=== PATIENT | male | born 1940 | race Caucasian/White ===

== ENCOUNTER → 2016-09-17 | Outpatient (CLI) | payer OTHER | END | disposition home or self-care (01) | LOC: WOUND 10:00 | PROVIDERS: ATTEND Physician Assistant | DX: I87.2 Venous insufficiency (chronic) (peripheral) (principal); L97.821 Non-pressure chronic ulcer of other part of left lower leg limited to breakdown of skin; L97.811 Non-pressure chronic ulcer of other part of right lower leg limited to breakdown of skin; I10 Essential (primary) hypertension; E78.5 Hyperlipidemia, unspecified; Z72.89 Other problems related to lifestyle; M10.9 Gout, unspecified; I48.91 Unspecified atrial fibrillation; Z87.891 Personal history of nicotine dependence; Z79.01 Long term (current) use of anticoagulants | CPT/HCPCS: 11042; G0463; 97597; WOU0463 ==

== ENCOUNTER → 2016-09-24 | Outpatient (CLI) | payer OTHER | END | disposition home or self-care (01) | LOC: WOUND 09:22 | PROVIDERS: ATTEND Physician Assistant | DX: I87.2 Venous insufficiency (chronic) (peripheral) (principal); L97.821 Non-pressure chronic ulcer of other part of left lower leg limited to breakdown of skin; I10 Essential (primary) hypertension; E78.5 Hyperlipidemia, unspecified; I48.91 Unspecified atrial fibrillation; Z72.89 Other problems related to lifestyle; Z87.891 Personal history of nicotine dependence; Z79.01 Long term (current) use of anticoagulants | CPT/HCPCS: 11042 ==

== ENCOUNTER → 2016-09-26 | Outpatient (CLI) | payer OTHER | END | disposition home or self-care (01) | LOC: CFH 09:20 | PROVIDERS: ATTEND Physician Assistant | DX: I87.8 Other specified disorders of veins (principal); T81.89XA Other complications of procedures, not elsewhere classified, initial encounter; Z85.46 Personal history of malignant neoplasm of prostate; E78.5 Hyperlipidemia, unspecified; Z87.891 Personal history of nicotine dependence; I10 Essential (primary) hypertension; Z95.3 Presence of xenogenic heart valve; I70.203 Unspecified atherosclerosis of native arteries of extremities, bilateral legs | CPT/HCPCS: 93922; 93925; 93970 ==

== ENCOUNTER → 2016-10-01 | Outpatient (CLI) | payer OTHER | END | disposition home or self-care (01) | LOC: WOUND 13:00 | PROVIDERS: ATTEND Surgery | DX: I87.2 Venous insufficiency (chronic) (peripheral) (principal); L97.822 Non-pressure chronic ulcer of other part of left lower leg with fat layer exposed; I10 Essential (primary) hypertension; E78.5 Hyperlipidemia, unspecified; I48.91 Unspecified atrial fibrillation; Z79.01 Long term (current) use of anticoagulants; Z85.46 Personal history of malignant neoplasm of prostate; Z87.891 Personal history of nicotine dependence; Z72.89 Other problems related to lifestyle | CPT/HCPCS: 97597 ==

== ENCOUNTER → 2016-10-08 | Outpatient (CLI) | payer OTHER | END | disposition home or self-care (01) | LOC: WOUND 09:00 | PROVIDERS: ATTEND Internal Medicine Cardiovascular Disease | DX: I87.2 Venous insufficiency (chronic) (peripheral) (principal); L97.822 Non-pressure chronic ulcer of other part of left lower leg with fat layer exposed; I10 Essential (primary) hypertension; E78.5 Hyperlipidemia, unspecified; I48.91 Unspecified atrial fibrillation; M10.9 Gout, unspecified; Z85.46 Personal history of malignant neoplasm of prostate; Z79.01 Long term (current) use of anticoagulants; Z87.891 Personal history of nicotine dependence; Z72.89 Other problems related to lifestyle | CPT/HCPCS: G0463; WOU0463 ==

== ENCOUNTER → 2016-10-15 | Outpatient (CLI) | payer OTHER | END | disposition home or self-care (01) | LOC: WOUND 08:47 | PROVIDERS: ATTEND Physician Assistant | DX: I87.2 Venous insufficiency (chronic) (peripheral) (principal); L97.822 Non-pressure chronic ulcer of other part of left lower leg with fat layer exposed; I48.91 Unspecified atrial fibrillation; I10 Essential (primary) hypertension; I70.203 Unspecified atherosclerosis of native arteries of extremities, bilateral legs; E78.5 Hyperlipidemia, unspecified; Z79.01 Long term (current) use of anticoagulants; Z87.891 Personal history of nicotine dependence; Z72.89 Other problems related to lifestyle; Z85.46 Personal history of malignant neoplasm of prostate | CPT/HCPCS: 97597 ==

== ENCOUNTER → 2016-10-29 | Outpatient (CLI) | payer OTHER | END | disposition home or self-care (01) | LOC: WOUND 09:00 | PROVIDERS: ATTEND Physician Assistant | DX: I87.2 Venous insufficiency (chronic) (peripheral) (principal); L97.822 Non-pressure chronic ulcer of other part of left lower leg with fat layer exposed; I10 Essential (primary) hypertension; E78.5 Hyperlipidemia, unspecified; I48.91 Unspecified atrial fibrillation; M10.9 Gout, unspecified; Z87.891 Personal history of nicotine dependence; Z79.01 Long term (current) use of anticoagulants; Z72.89 Other problems related to lifestyle; Z85.46 Personal history of malignant neoplasm of prostate | CPT/HCPCS: G0463; WOU0463 ==

== ENCOUNTER 2017-03-29 09:34 | Inpatient (IN) | payer OTHER ==
[~2017-03-29] VITALS: Ht 180.3 cm; Wt 128.4 kg
[2017-03-29] VITALS (10 sets, daily range): BP systolic 145–173; BP diastolic 66–104
[2017-03-29] MEDS ORDERED: SILVER NITRATE STICK TP ONE (10:10)
[2017-03-29] MEDS ORDERED: LABETALOL 5MG/ML, 20ML ONE (12:14)
[2017-03-29] MEDS ORDERED: LABETALOL 5MG/ML, 20ML IVPush ONE (12:30)
[2017-03-29 12:34] LABS: HEMATOCRIT 43.6 % (39.2-51.8); HEMOGLOBIN 15.1 g/dL (13.7-18.0); WHITE BLOOD COUNT 9.5 x10^3/uL (3.4-10)
[2017-03-29 12:50] LABS: BLOOD UREA NITROGEN 19 mg/dL (7-18)
[2017-03-29] MEDS: hydrALAzine 20 MG/ML, 1ML IVPush PRN ×2 (12:55→17:48)
[2017-03-29] MEDS ORDERED: hydrALAzine 20 MG/ML, 1ML ONE (13:33)
[2017-03-29] MEDS ORDERED: ENALAPRILAT 1.25 MG/ML, 2ML IVPush PRN (14:30)
[2017-03-29] MEDS ORDERED: LISINOPRIL 20 MG TABLET PO ONE (14:30)
[2017-03-29] MEDS ORDERED: ACETAMINOPHEN 325 MG TABLET PO PRN (14:30)
[2017-03-29] MEDS ORDERED: DOCUSATE 100 MG CAPSULE PO PRN (14:30)
[2017-03-29] MEDS ORDERED: VITA100C8 PO (14:52)
[2017-03-29] MEDS ORDERED: ASPI-496 PO (14:52)
[2017-03-29] MEDS ORDERED: METO25TA35 PO (14:52)
[2017-03-29] MEDS ORDERED: LISI-170 PO (14:52)
[2017-03-29] MEDS ORDERED: WARF5TAB PO (14:52)
[2017-03-29] MEDS ORDERED: CALCIUM PO (14:52)
[2017-03-29] MEDS ORDERED: OMEG1CAP28 PO (14:52)
[2017-03-29] MEDS ORDERED: ALLO100T30 PO (14:52)
[2017-03-29] MEDS ORDERED: ATOR40TA PO (14:52)
[2017-03-29] MEDS ORDERED: MORPHINE SULFATE 4 MG/ML, 1ML IVPush PRN (15:30)
[2017-03-29] MEDS ORDERED: ONDANSETRON 2MG/ML, 2ML IVPush ONE (15:30)
[2017-03-29] MEDS ORDERED: WARFARIN 5 MG TABLET PO-COUM ONE (18:00)
[2017-03-29] MEDS: LABETALOL 5MG/ML, 20ML IVPush PRN (18:18)
[2017-03-29] MEDS ORDERED: PHYTONADIONE 5 MG TABLET PO ONE (19:00)
[2017-03-29] MEDS: CEPHALEXIN 500 MG CAPSULE PO SCH ×2 (21:00→21:09)
[2017-03-29] MEDS: OMEGA-3/FISH OIL CAPSULE PO SCH (21:09)
[2017-03-29] MEDS: SODIUM CHLORIDE FLUSH 10ML SYR IVF SCH (21:09)
[2017-03-29] MEDS: DIPHENHYDRAMINE 25 MG CAPSULE PO PRN (21:10)
[2017-03-29] MEDS: ATORVASTATIN 40 MG TABLET PO SCH (21:10)
[2017-03-30] VITALS (14 sets, daily range): BP systolic 112–158; BP diastolic 69–100
[2017-03-30] MEDS: LABETALOL 5MG/ML, 20ML IVPush PRN (03:37)
[2017-03-30] MEDS: hydrALAzine 20 MG/ML, 1ML IVPush PRN ×2 (04:48→13:35)
[2017-03-30] MEDS: CEPHALEXIN 500 MG CAPSULE PO SCH ×2 (04:48→12:11)
[2017-03-30] MEDS: ONDANSETRON 2MG/ML, 2ML IVPush PRN ×3 (05:22→20:36)
[2017-03-30 05:44] LABS: HEMATOCRIT 41.4 % (39.2-51.8); HEMOGLOBIN 14.1 g/dL (13.7-18.0); WHITE BLOOD COUNT 12.6 x10^3/uL (3.4-10)
[2017-03-30 05:53] LABS: BLOOD UREA NITROGEN 19 mg/dL (7-18)
[2017-03-30] MEDS ORDERED: METOPROLOL SUCCINATE 50 MG TAB.ER.24H PO SCH (06:00)
[2017-03-30] MEDS ORDERED: morphine SULFATE 10 MG/ML, 1ML IVPush PRN (07:30)
[2017-03-30] MEDS ORDERED: PHYTONADIONE 10 MG/ML, 1ML SQ SCH (09:00)
[2017-03-30] MEDS: SODIUM CHLORIDE FLUSH 10ML SYR IVF SCH ×2 (09:50→20:38)
[2017-03-30] MEDS: OMEGA-3/FISH OIL CAPSULE PO SCH ×2 (09:50→20:36)
[2017-03-30] MEDS: ALLOPURINOL 100 MG TABLET PO SCH (09:51)
[2017-03-30] MEDS: CALCIUM CARBONATE 500 MG TAB.CHEW PO SCH (09:51)
[2017-03-30] MEDS: MORPHINE SULFATE 4 MG/ML, 1ML IVPush PRN ×2 (12:11→16:26)
[2017-03-30] MEDS: CEFAZOLIN PMX 1GM/50ML 50 ML IV SCH ×2 (17:07→23:52)
[2017-03-30] MEDS ORDERED: hydrALAzine 20 MG/ML, 1ML IVPush PRN ×2 (18:00→18:30)
[2017-03-30] MEDS ORDERED: WARFARIN 5 MG TABLET PO-COUM SCH (18:00)
[2017-03-30] MEDS ORDERED: LABETALOL 5MG/ML, 20ML IVPush PRN ×2 (18:00→20:30)
[2017-03-30] MEDS: ENALAPRILAT 1.25 MG/ML, 2ML IVPush PRN ×2 (18:03→23:15)
[2017-03-30] MEDS ORDERED: ENALAPRILAT 1.25 MG/ML, 2ML IVPush PRN (20:30)
[2017-03-30] MEDS: DIPHENHYDRAMINE 25 MG CAPSULE PO PRN (20:35)
[2017-03-30] MEDS: ATORVASTATIN 40 MG TABLET PO SCH (20:36)
[2017-03-31] MEDS: CALCIUM CARBONATE 500 MG TAB.CHEW PO PRN ×2 (01:13→17:13)
[2017-03-31 01:29] VITALS: BP 145/82
[2017-03-31 05:32] VITALS: BP 125/75
[2017-03-31] MEDS: METOPROLOL SUCCINATE 100 MG TAB.ER.24H PO SCH (05:41)
[2017-03-31 05:43] LABS: HEMATOCRIT 39.3 % (39.2-51.8); HEMOGLOBIN 13.4 g/dL (13.7-18.0); WHITE BLOOD COUNT 14.6 x10^3/uL (3.4-10)
[2017-03-31 05:46] LABS: BLOOD UREA NITROGEN 16 mg/dL (7-18)
[2017-03-31 06:35] VITALS: BP 137/73
[2017-03-31] MEDS ORDERED: SIMETHICONE 125 MG CHEW TAB PO PRN (08:00)
[2017-03-31] MEDS: SODIUM CHLORIDE FLUSH 10ML SYR IVF SCH ×2 (09:00→20:29)
[2017-03-31] MEDS: OMEGA-3/FISH OIL CAPSULE PO SCH ×2 (09:43→20:29)
[2017-03-31] MEDS: CEFAZOLIN PMX 1GM/50ML 50 ML IV SCH ×2 (09:43→17:05)
[2017-03-31] MEDS: HYDROCHLOROTHIAZIDE 12.5 MG CAPSULE PO SCH (09:44)
[2017-03-31] MEDS: LISINOPRIL 20 MG TABLET PO SCH (09:44)
[2017-03-31] MEDS: CALCIUM CARBONATE 500 MG TAB.CHEW PO SCH (09:45)
[2017-03-31] MEDS: ALLOPURINOL 100 MG TABLET PO SCH (09:45)
[2017-03-31 11:32] VITALS: BP 130/80
[2017-03-31 12:32] VITALS: BP 122/73
[2017-03-31 20:00] VITALS: BP 127/75
[2017-03-31] MEDS: ATORVASTATIN 40 MG TABLET PO SCH (20:29)
[2017-04-01] VITALS (8 sets, daily range): BP systolic 113–136; BP diastolic 70–79
[2017-04-01] MEDS: DIPHENHYDRAMINE 25 MG CAPSULE PO PRN (00:44)
[2017-04-01] MEDS: CEFAZOLIN PMX 1GM/50ML 50 ML IV SCH ×3 (00:44→18:26)
[2017-04-01] MEDS: METOPROLOL SUCCINATE 100 MG TAB.ER.24H PO SCH (06:01)
[2017-04-01] MEDS: CALCIUM CARBONATE 500 MG TAB.CHEW PO SCH (08:09)
[2017-04-01] MEDS: LISINOPRIL 20 MG TABLET PO SCH (08:09)
[2017-04-01] MEDS: ALLOPURINOL 100 MG TABLET PO SCH (08:09)
[2017-04-01] MEDS: HYDROCHLOROTHIAZIDE 12.5 MG CAPSULE PO SCH (08:10)
[2017-04-01] MEDS: SODIUM CHLORIDE FLUSH 10ML SYR IVF SCH ×2 (08:10→20:41)
[2017-04-01] MEDS: OMEGA-3/FISH OIL CAPSULE PO SCH ×2 (08:10→20:41)
[2017-04-01] MEDS: ATORVASTATIN 40 MG TABLET PO SCH (20:41)
[2017-04-02] MEDS: CEFAZOLIN PMX 1GM/50ML 50 ML IV SCH ×2 (01:14→09:23)
[2017-04-02 01:17] VITALS: BP 129/78
[2017-04-02 04:00] VITALS: BP 117/75
[2017-04-02] MEDS: METOPROLOL SUCCINATE 100 MG TAB.ER.24H PO SCH (05:35)
[2017-04-02 05:46] LABS: HEMATOCRIT 37.8 % (39.2-51.8); HEMOGLOBIN 13.1 g/dL (13.7-18.0); WHITE BLOOD COUNT 10.1 x10^3/uL (3.4-10)
[2017-04-02 07:07] VITALS: BP 118/77
[2017-04-02] MEDS ORDERED: THROMBIN 5,000 UNIT VIAL TP ONE (07:49)
[2017-04-02] MEDS: SODIUM CHLORIDE FLUSH 10ML SYR IVF SCH (09:00)
[2017-04-02] MEDS: OMEGA-3/FISH OIL CAPSULE PO SCH (09:23)
[2017-04-02] MEDS: HYDROCHLOROTHIAZIDE 12.5 MG CAPSULE PO SCH (09:23)
[2017-04-02] MEDS: LISINOPRIL 20 MG TABLET PO SCH (09:24)
[2017-04-02] MEDS: CALCIUM CARBONATE 500 MG TAB.CHEW PO SCH (09:24)
[2017-04-02] MEDS: ALLOPURINOL 100 MG TABLET PO SCH (09:24)
[2017-04-02 13:20] VITALS: BP 107/67
[2017-04-02] MEDS ORDERED: LISI-170 PO (15:00)
[2017-04-02] MEDS ORDERED: HYDR12.53 PO (15:00)
[2017-04-02] MEDS ORDERED: METO-95 PO (15:00)
== END 2017-04-02 16:50 | disposition home or self-care (01) | DRG 151 ==
LOC: ED 10:55 → EDIP 14:04 → 4EST 15:21 → OBSVTOIN 03-30 15:25
PROVIDERS: ADMIT Family Medicine; ATTEND Family Medicine
PROC: 2Y41X5Z Packing of Nasal Region using Packing Material (ICD-10-PCS; principal; 2017-03-29)
DX: R04.0 Epistaxis (principal); I48.2 Chronic atrial fibrillation; T45.515A Adverse effect of anticoagulants, initial encounter; I16.0 Hypertensive urgency; I10 Essential (primary) hypertension; R79.1 Abnormal coagulation profile; I87.8 Other specified disorders of veins; G47.30 Sleep apnea, unspecified; Z85.828 Personal history of other malignant neoplasm of skin; Z86.73 Personal history of transient ischemic attack (TIA), and cerebral infarction without residual deficits; Z95.3 Presence of xenogenic heart valve; Z79.01 Long term (current) use of anticoagulants; Z79.899 Other long term (current) drug therapy; Z98.49 Cataract extraction status, unspecified eye
CPT/HCPCS: 30901; 36415; 80048; 82040; 85025; 85610; 85730; 93005; 96374; 96375; 96376; G0378; J0690; J2405; J0360; J2270; Q0163

== ENCOUNTER → 2017-10-28 | Outpatient (CLI) | payer OTHER ==
[~2017-10-28] MED LIST: ALLO100T30 PO; ASPI-496 PO; ATOR40TA PO; CALCIUM PO; HYDR12.53 PO; LISI-170 PO; METO-95 PO; METO25TA35 PO; OMEG1CAP28 PO; VITA100C8 PO; WARF5TAB PO
== END | disposition home or self-care (01) ==
LOC: CVU 09:51
PROVIDERS: ATTEND Internal Medicine Cardiovascular Disease
DX: I08.1 Rheumatic disorders of both mitral and tricuspid valves (principal); I10 Essential (primary) hypertension; I48.92 Unspecified atrial flutter; E78.5 Hyperlipidemia, unspecified; Z95.2 Presence of prosthetic heart valve
CPT/HCPCS: 93306

== ENCOUNTER 2017-11-21 08:15 | Inpatient (IN) | payer OTHER ==
[2017-11-19 11:26] VITALS: BP 131/102
[2017-11-19 11:43] LABS: BASOPHILS % (AUTO) 2 % (0-1); EOSINOPHILS # (AUTO) 0.13 x10^3/uL (0-0.4); EOSINOPHILS % (AUTO) 2 % (1-7); LYMPHOCYTES # (AUTO) 1.32 x10^3/uL (1-3.4); LYMPHOCYTES % (AUTO) 19 % (22-44); MD NO; MEAN CORPUSCULAR HEMOGLOBIN 31.6 pg (27.5-34.5); MEAN CORPUSCULAR HGB CONC 34.2 g/dL (33.2-36.2); MEAN CORPUSCULAR VOLUME 92.4 fL (81-97); MEAN PLATELET VOLUME 9.1 fL (7.4-10.4); MONOCYTES # (AUTO) 0.48 x10^3/uL (0.2-0.8); MONOCYTES % (AUTO) 7 % (2-9); NEUTROPHILS # (AUTO) 4.82 x10^3/uL (1.8-6.8); NEUTROPHILS % (AUTO) 70 % (42-75); PLATELET COUNT 181 x10^3/uL (130-400); RED BLOOD COUNT 4.88 x10^6/uL (4.38-5.82); RED CELL DISTRIBUTION WIDTH 13.1 % (9.4-14.8)
[2017-11-19 11:56] LABS: CHLORIDE 105 mmol/L (98-107)
[2017-11-19 12:03] LABS: ALANINE AMINOTRANSFERASE 45 U/L (12-78); ALBUMIN 3.7 g/dL (3.4-5.0); ALKALINE PHOSPHATASE 65 U/L (45-117); ANION GAP 3 mmol/L (5-15); BILIRUBIN,TOTAL 0.6 mg/dL (0.2-1.0); CALCIUM 9.4 mg/dL (8.5-10.1); CREATININE 1.33 mg/dL (0.7-1.3); TOTAL PROTEIN 7.9 g/dL (6.4-8.2)
[2017-11-19 12:18] LABS: INTERNATIONAL NORMALIZED RATIO 3.33 (0.93-1.1); PROTHROMBIN TIME 33.5 Seconds (9.6-11.5)
[~2017-11-21] VITALS: Ht 177.8 cm; Wt 125.0 kg
[2017-11-21] VITALS (13 sets, daily range): BP systolic 115–154; BP diastolic 74–98
[~2017-11-21 08:15] MED LIST changes: +LISI40TA PO
[2017-11-21] MEDS ORDERED: SODIUM CHLORIDE 0.9% 1,000 ML IV ONE (08:30)
[2017-11-21] MEDS ORDERED: SODIUM CHLORIDE 0.9% 1,000 ML IV SCH ×2 (08:30→10:52)
[2017-11-21 09:26] LABS: INTERNATIONAL NORMALIZED RATIO 3.57 (0.93-1.1); PROTHROMBIN TIME 35.9 Seconds (9.6-11.5)
[2017-11-21] MEDS ORDERED: ACETAMINOPHEN 325 MG TABLET PO PRN (11:00)
[2017-11-21] MEDS ORDERED: ZOLPIDEM 5MG TABLET PO PRN (11:00)
[2017-11-21] MEDS ORDERED: ONDANSETRON 2MG/ML, 2ML IVPush PRN (11:00)
[2017-11-21 17:41] LABS: INTERNATIONAL NORMALIZED RATIO 2.03 (0.93-1.1); PROTHROMBIN TIME 20.6 Seconds (9.6-11.5)
[2017-11-21] MEDS: ATORVASTATIN 40 MG TABLET PO SCH (22:11)
[2017-11-22 01:45] VITALS: BP 102/66
[2017-11-22 04:33] LABS: INTERNATIONAL NORMALIZED RATIO 2.45 (0.93-1.1); PROTHROMBIN TIME 24.8 Seconds (9.6-11.5)
[2017-11-22] MEDS: ASPIRIN 81 MG TABLET EC PO SCH (05:41)
[2017-11-22] MEDS ORDERED: TRIA10.8 NAS (06:39)
[2017-11-22 08:04] VITALS: BP 111/70
[2017-11-22 08:31] VITALS: BP 132/80
[2017-11-22] MEDS: ALLOPURINOL 100 MG TABLET PO SCH (08:32)
[2017-11-22] MEDS: METOPROLOL SUCCINATE 100 MG TAB.ER.24H PO SCH (08:32)
[2017-11-22] MEDS: LISINOPRIL 20 MG TABLET PO SCH (08:33)
[2017-11-22] MEDS ORDERED: FENTANYL PF 250 MCG/5ML ONE (11:56)
[2017-11-22] MEDS ORDERED: HEPARIN 1,000 UNITS/ML, 10ML ONE (12:03)
[2017-11-22] MEDS ORDERED: SUCCINYLCHOLINE 20 MG/ML, 10ML ONE (12:06)
[2017-11-22] MEDS ORDERED: PROPOFOL 10 MG/ML, 20ML ONE (12:06)
[2017-11-22] MEDS ORDERED: ROCURONIUM 10 MG/ML,10ML ONE (12:06)
[2017-11-22] MEDS ORDERED: ONDANSETRON 2MG/ML, 2ML ONE (12:06)
[2017-11-22] MEDS ORDERED: PROMETHAZINE 25 MG/ML, 1ML IV PRN (14:00)
[2017-11-22] MEDS ORDERED: MIDAZOLAM 1 MG/ML, 2ML IV PRN (14:00)
[2017-11-22] MEDS ORDERED: PROMETHAZINE 12.5 MG SUPP PR PRN (14:00)
[2017-11-22] MEDS ORDERED: OXYcodone 5 MG/5 ML ORAL.SOL UDC PO PRN (14:00)
[2017-11-22] MEDS ORDERED: hydrALAzine 20 MG/ML, 1ML IV PRN (14:00)
[2017-11-22] MEDS ORDERED: EPHEDRINE 50 MG/ML, 1ML IVPush PRN (14:00)
[2017-11-22] MEDS ORDERED: MORPHINE SULFATE 4 MG/ML, 1ML IVPush PRN (14:00)
[2017-11-22] MEDS ORDERED: ACETAMINOPHEN 325 MG TABLET PO PRN (14:00)
[2017-11-22] MEDS ORDERED: METOPROLOL 1 MG/ML, 5ML IV PRN (14:00)
[2017-11-22] MEDS ORDERED: FENTANYL PF 100 MCG/2ML IV PRN (14:00)
[2017-11-22] MEDS ORDERED: EPHEDRINE 50 MG/ML, 1ML IM PRN (14:00)
[2017-11-22] MEDS ORDERED: ONDANSETRON ODT 8 MG PO PRN (14:00)
[2017-11-22] MEDS ORDERED: PROMETHAZINE 25 MG SUPP PR PRN (14:00)
[2017-11-22] MEDS ORDERED: DIPHENHYDRAMINE 50 MG/ML, 1ML IVPush PRN (14:00)
[2017-11-22 14:53] VITALS: BP 113/73
[2017-11-22] MEDS ORDERED: WARFARIN 5 MG TABLET PO-COUM SCH (18:00)
[2017-11-22 19:07] VITALS: BP 118/75
[2017-11-22] MEDS: ATORVASTATIN 40 MG TABLET PO SCH (20:27)
[2017-11-23 02:09] VITALS: BP 101/62
[2017-11-23 05:12] LABS: INTERNATIONAL NORMALIZED RATIO 2.58 (0.93-1.1); PROTHROMBIN TIME 26.1 Seconds (9.6-11.5)
[2017-11-23 05:14] LABS: CHLORIDE 104 mmol/L (98-107)
[2017-11-23 05:23] LABS: ANION GAP 4 mmol/L (5-15); CALCIUM 8.9 mg/dL (8.5-10.1); CREATININE 1.81 mg/dL (0.7-1.3)
[2017-11-23 05:26] LABS: BASOPHILS # (AUTO) 0.04 x10^3/uL (0-0.1); BASOPHILS % (AUTO) 1 % (0-1); EOSINOPHILS # (AUTO) 0.15 x10^3/uL (0-0.4); EOSINOPHILS % (AUTO) 2 % (1-7); LYMPHOCYTES # (AUTO) 1.06 x10^3/uL (1-3.4); LYMPHOCYTES % (AUTO) 15 % (22-44); MD NO; MEAN CORPUSCULAR HEMOGLOBIN 31.1 pg (27.5-34.5); MEAN CORPUSCULAR HGB CONC 33.5 g/dL (33.2-36.2); MEAN CORPUSCULAR VOLUME 92.8 fL (81-97); MEAN PLATELET VOLUME 9.4 fL (7.4-10.4); MONOCYTES # (AUTO) 0.51 x10^3/uL (0.2-0.8); MONOCYTES % (AUTO) 7 % (2-9); NEUTROPHILS # (AUTO) 5.36 x10^3/uL (1.8-6.8); NEUTROPHILS % (AUTO) 75 % (42-75); PLATELET COUNT 150 x10^3/uL (130-400); RED BLOOD COUNT 4.16 x10^6/uL (4.38-5.82); RED CELL DISTRIBUTION WIDTH 13.6 % (9.4-14.8)
[2017-11-23] MEDS: ASPIRIN 81 MG TABLET EC PO SCH (06:01)
[2017-11-23 07:07] VITALS: BP 114/70
[2017-11-23] MEDS: ALLOPURINOL 100 MG TABLET PO SCH (08:59)
[2017-11-23 09:00] VITALS: BP 111/69
[2017-11-23] MEDS: LISINOPRIL 20 MG TABLET PO SCH (09:00)
[2017-11-23] MEDS: METOPROLOL SUCCINATE 100 MG TAB.ER.24H PO SCH (09:00)
[2017-11-23] MEDS ORDERED: METO-95 PO (09:44)
[2017-11-23] MEDS ORDERED: LISI40TA PO (09:44)
[2017-11-23] MEDS ORDERED: ACET325T14 PO (09:44)
[2017-11-23 13:30] VITALS: BP 114/71
== END 2017-11-23 13:40 | disposition home or self-care (01) | DRG 274 ==
LOC: CACL 08:15 → 5SO 11:33 → CACL 23:04 → 5SO 23:12
PROVIDERS: ADMIT Internal Medicine Cardiovascular Disease; ATTEND Internal Medicine Cardiovascular Disease
PROC: 30233L1 Transfusion of Nonautologous Fresh Plasma into Peripheral Vein, Percutaneous Approach (ICD-10-PCS; 2017-11-21)
PROC: 30233K1 Transfusion of Nonautologous Frozen Plasma into Peripheral Vein, Percutaneous Approach (ICD-10-PCS; 2017-11-21)
PROC: 02K83ZZ Map Conduction Mechanism, Percutaneous Approach (ICD-10-PCS; 2017-11-22)
PROC: 4A023FZ Measurement of Cardiac Rhythm, Percutaneous Approach (ICD-10-PCS; 2017-11-22)
PROC: 4A0234Z Measurement of Cardiac Electrical Activity, Percutaneous Approach (ICD-10-PCS; 2017-11-22)
PROC: 02583ZZ Destruction of Conduction Mechanism, Percutaneous Approach (ICD-10-PCS; principal; 2017-11-22 12:00)
DX: I48.92 Unspecified atrial flutter (principal); D68.69 Other thrombophilia; I10 Essential (primary) hypertension; I45.9 Conduction disorder, unspecified; I48.91 Unspecified atrial fibrillation; Z87.891 Personal history of nicotine dependence; Z95.3 Presence of xenogenic heart valve
CPT/HCPCS: 36415; 71046; 80048; 80053; 85025; 85610; 85730; 86850; 86900; 93005; 93308; 93312; 93321; 93325; 93613; 93621; 93653; C1731; C1732; C1894; J1644; J2405; J2704; J3010; C1730; J0330; P9017

== ENCOUNTER → 2020-03-15 | Outpatient (CLI) | payer MEDICARE ==
[~2020-03-15] MED LIST changes: +ACET325T14 PO; +HYDR12.517 PO; -HYDR12.53 PO; +TRIA10.8 NAS; -WARF5TAB PO; +WARF5TAB2 PO
== END | disposition home or self-care (01) ==
LOC: CVU 07:27
PROVIDERS: ATTEND Internal Medicine Cardiovascular Disease
DX: I34.0 Nonrheumatic mitral (valve) insufficiency (principal)
CPT/HCPCS: 93306